=== PATIENT | male | born 1930 | race Caucasian/White ===

== ENCOUNTER 2017-12-23 19:17 | Emergency (ER) | payer MEDICARE ==
[~2017-12-23] VITALS: Ht 167.6 cm; Wt 99.8 kg
[2017-12-23 19:17] VITALS: BP_SYST 154
[~2017-12-23 19:17] MED LIST: ASCO500T20 PO; ASPI81TA2 PO; ATOR20TA64 PO; CALC-226 PO; FURO-149 PO; HYDR-1115 PO; HYT1 GT; LISI30TA36 PO; NPH,100V SUBCUT; POTA-118 PO; SSREG SUBCUT; VITD2000 PO
[2017-12-23 21:00] LABS: BILIRUBIN,URINE NEGATIVE (NEGATIVE); BLOOD, URINE NEGATIVE (NEGATIVE); CLARITY/URINE CLEAR (CLEAR); COLOR,URINE YELLOW (YELLOW); GLUCOSE,URINE 3+ (NEGATIVE); KETONES,URINE NEGATIVE (NEGATIVE); LEUKOCYTE ESTERASE ,URINE NEGATIVE (NEGATIVE); NITRITE, URINE NEGATIVE (NEGATIVE); PH,URINE 6.5 (5.0-8.0); PROTEIN URINE NEGATIVE (NEGATIVE); UROBILINOGEN,URINE 0.2 (0.2-1.0)
[2017-12-23 21:05] LABS: BASOPHILS # (AUTO) 0.1 K/uL (0.0-0.2); BASOPHILS % (AUTO) 0.8 % (0.0-2.0); EOSINOPHILS # (AUTO) 0.2 K/uL (0.0-0.4); EOSINOPHILS % (AUTO) 2.8 % (0.0-4.0); HEMATOCRIT 43.8 % (36-54); HEMOGLOBIN 14.7 g/dL (14.0-18.0); LYMPHOCYTES # (AUTO) 1.2 K/uL (1.0-5.5); LYMPHOCYTES % (AUTO) 17.8 % (20.5-51.5); MEAN CORPUSCULAR HEMOGLOBIN 28 pg (27-31); MEAN CORPUSCULAR HGB CONC 34 % (32-36); MEAN CORPUSCULAR VOLUME 83 fL (79.0-98.0); MONOCYTES # (AUTO) 0.5 K/uL (0.0-1.0); MONOCYTES % (AUTO) 7.2 % (1.7-9.3); NEUTROPHILS # (AUTO) 4.5 K/uL (1.8-7.7); NEUTROPHILS % (AUTO) 71.4 % (40.0-70.0); PLATELET COUNT (AUTO) 152 K/uL (130-430); RED BLOOD CELL COUNT(AUTO) 5.31 MIL/uL (4.2-6.2); WHITE BLOOD COUNT (AUTO) 6.5 K/uL (4.8-10.8)
[2017-12-23 21:09] LABS: BACTERIA,URINE RARE /HPF (None Seen); MUCUS,URINE None Seen /LPF (None Seen); RBC,URINE NONE SEEN /HPF (0-3); WBC,URINE NONE SEEN /HPF (0-3)
[2017-12-23 21:14] LABS: ANION GAP 6 (5-15); CALCIUM 8.9 mg/dL (8.4-11.0); CHLORIDE 103 mmol/L (98-107); CREATININE 0.93 mg/dL (0.55-1.30); GLUCOSE 271 mg/dL (70-99); POTASSIUM 3.9 mmol/L (3.5-5.1); SODIUM SERUM 137 mmol/L (136-145); UREA NITROGEN, BLOOD 10 mg/dL (8-21)
[2017-12-23 21:14] LABS: BARBITURATE, URINE NEGATIVE (NEG <=200); BENZODIAZEPINE, URINE NEGATIVE (NEG <=150); CANNABINOID, URINE NEGATIVE (NEG <=50); COCAINE, URINE NEGATIVE (NEG <=150); METHAMPHETAMINES SCREEN,URINE NEGATIVE (NEG <=500); OPIATE, URINE NEGATIVE (NEG <=100); PHENCYCLIDINE SCREEN,URINE NEGATIVE (NEG <=25); UR TRICYCLIC ANTIDEPRESSANTS NEGATIVE (NEG <=300); URINE AMPHETAMINE NEGATIVE (NEG <=500); URINE METHADONE NEGATIVE (NEG <=200); URINE OXYCODONE SCREEN NEGATIVE (NEG <=100); URINE PROPOXYPHENE SCREEN NEGATIVE (NEG <=300)
[2017-12-23 21:17] LABS: PROTHROMBIN TIME 10.4 SECS (9.5-12.5)
[2017-12-23 21:18] LABS: ALANINE AMINOTRANSFERASE 24 U/L (12-78); ALBUMIN 3.3 g/dL (3.4-4.8); ASPARTATE AMINOTRANSFERASE 14 U/L (10-37); TOTAL BILIRUBIN 0.5 mg/dL (0.0-1.0)
[2017-12-23 21:19] LABS: ALCOHOL, BLOOD < 3 mg/dL (<10)
[2017-12-24] VITALS: BP_SYST 148
== END 2017-12-24 | disposition home or self-care (01) ==
LOC: SED 19:17
DX: R53.1 Weakness (principal); E11.9 Type 2 diabetes mellitus without complications; I10 Essential (primary) hypertension; Z86.79 Personal history of other diseases of the circulatory system; Z79.82 Long term (current) use of aspirin; Z79.4 Long term (current) use of insulin; Z88.1 Allergy status to other antibiotic agents
CPT/HCPCS: 36415; 71045; 80053; 80307; 81000; 83880; 84484; 85025; 85610; 85730; 93005; 99285; G0482

== ENCOUNTER 2018-03-25 13:45 | Emergency (ER) | payer MEDICARE ==
[~2018-03-25] VITALS: Ht 180.3 cm; Wt 95.3 kg
[2018-03-25 13:48] VITALS: BP_SYST 129
[2018-03-25] MEDS ORDERED: GENTAMICIN SULFATE 0.3% OPHT. 5 ML DROPS OP ONE (14:15)
[2018-03-25 14:58] VITALS: BP_SYST 129
== END 2018-03-25 14:58 | disposition home or self-care (01) ==
LOC: SED 13:45
DX: H10.9 Unspecified conjunctivitis (principal); I10 Essential (primary) hypertension; Z86.79 Personal history of other diseases of the circulatory system; Z88.1 Allergy status to other antibiotic agents; Z79.82 Long term (current) use of aspirin; Z79.899 Other long term (current) drug therapy
CPT/HCPCS: 99283

== ENCOUNTER 2018-11-17 16:59 | Emergency (ER) | payer MEDICARE ==
[~2018-11-17] VITALS: Ht 180.3 cm; Wt 95.3 kg
[~2018-11-17 16:59] MED LIST changes: +ASPI-1155 PO; -ASPI81TA2 PO; -CALC-226 PO; +CALC-823 PO; -HYDR-1115 PO; +HYDR-4038 PO; -POTA-118 PO; +POTA10TA15 PO
[2018-11-17 17:42] VITALS: BP_SYST 146
[2018-11-17] MEDS ORDERED: NACL 0.9% 1,000 ML IV ONE ×2 (18:47→22:15)
[2018-11-17] MEDS ORDERED: cefTRIAXone 1 GM in D5W 50 ML IV ONE (19:00)
[2018-11-17] MEDS ORDERED: cefTRIAXone 1 GM VIAL ONE (19:41)
[2018-11-17 19:53] LABS: HEMATOCRIT 42.2 % (36-54); HEMOGLOBIN 14.5 g/dL (14.0-18.0); MEAN CORPUSCULAR HEMOGLOBIN 29 pg (27-31); MEAN CORPUSCULAR HGB CONC 34 % (32-36); MEAN CORPUSCULAR VOLUME 84 fL (79.0-98.0); RED BLOOD CELL COUNT(AUTO) 5.02 MIL/uL (4.2-6.2); WHITE BLOOD COUNT (AUTO) 8.9 K/uL (4.8-10.8)
[2018-11-17 19:54] LABS: BASOPHILS % (AUTO) 0.4 % (0.0-2.0); EOSINOPHILS % (AUTO) 0.5 % (0.0-4.0); LYMPHOCYTES % (AUTO) 11.6 % (20.5-51.5); MONOCYTES % (AUTO) 5.9 % (1.7-9.3); NEUTROPHILS # (AUTO) 7.3 K/uL (1.8-7.7); NEUTROPHILS % (AUTO) 81.6 % (40.0-70.0); PLATELET COUNT (AUTO) 120 K/uL (130-430); RED CELL DISTRIBUTION WIDTH 14.2 % (9.0-15.0)
[2018-11-17 19:55] LABS: MONOCYTES # (AUTO) 0.5 K/uL (0.0-1.0)
[2018-11-17 19:58] LABS: ANION GAP 10 (5-15); CALCIUM 8.5 mg/dL (8.4-11.0); CHLORIDE 101 mmol/L (98-107); CREATININE 0.94 mg/dL (0.55-1.30); GLUCOSE 232 mg/dL (70-99); POTASSIUM 3.8 mmol/L (3.5-5.1); SODIUM SERUM 134 mmol/L (136-145); UREA NITROGEN, BLOOD 16 mg/dL (8-21)
[2018-11-17 20:03] LABS: ALANINE AMINOTRANSFERASE 23 U/L (12-78); ALBUMIN 3.3 g/dL (3.4-4.8); ASPARTATE AMINOTRANSFERASE 19 U/L (10-37); TOTAL BILIRUBIN 0.6 mg/dL (0.0-1.0)
[2018-11-17] MEDS ORDERED: MORPHINE 4 MG/ML INJ. SYRINGE IVP ONE (21:15)
[2018-11-17] MEDS ORDERED: ACETAMINOPHEN 500 MG TABLET PO ONE (22:30)
[2018-11-17] MEDS ORDERED: hydrALAZINE HCL 20 MG/ML VIAL IVP ONE (22:30)
[2018-11-17] MEDS ORDERED: cloNIDine HCL 0.1 MG TABLET PO ONE (22:45)
[2018-11-17 23:04] VITALS: BP_SYST 174
== END 2018-11-17 23:04 | disposition short-term general hospital (02) ==
LOC: SED 16:59
DX: T83.090A Other mechanical complication of cystostomy catheter, initial encounter (principal); E11.9 Type 2 diabetes mellitus without complications; I10 Essential (primary) hypertension; Z86.79 Personal history of other diseases of the circulatory system; Z88.1 Allergy status to other antibiotic agents; Z79.899 Other long term (current) drug therapy; Z79.82 Long term (current) use of aspirin
CPT/HCPCS: 36415; 80053; 83605; 85025; 87040; 87186; 96365; 96375; 99285; J0360; J0696; J2270; J7030

== ENCOUNTER 2019-07-19 21:51 | Emergency (ER) | payer MEDICARE ==
[~2019-07-19] VITALS: Ht 182.9 cm; Wt 108.9 kg
[2019-07-19 22:00] VITALS: BP_SYST 146
--- NOTE | 2019-07-19 22:05 | NUR ---
Pt to bed 8 for evaluation
--- NOTE | 2019-07-19 22:12 | NUR ---
PLACED IN BED 8. HERE FOR LOWER ABDOMINAL,SCROTAL PAIN AND SWELLING.
--- NOTE | 2019-07-19 22:30 | NUR ---
FINGERSTICK BLOOD SUGAR GICZH=075. MADE AWARE.
--- NOTE | 2019-07-19 23:01 | NUR ---
BODY RECALL INSTRUCTOR.AT BEDSIDE TO DO TESTICULAR ULTRASOUND.
--- NOTE | 2019-07-19 23:32 | NUR ---
ULTRASOUND COMPLETED. PT.TOLERATED WELL.
--- NOTE | 2019-07-20 00:19 | NUR ---
ER-MD BACK AT BEDSIDE TO RE-EVALUATE AND DISCUSS PLAN OF CARE WITH PATIENT.
[2019-07-20] MEDS ORDERED: MORPHINE 2 MG/ML INJ. SYRINGE IVP ONE (00:30)
--- NOTE | 2019-07-20 00:48 | NUR ---
GAUGE 20 IV LINE ESTABLISHED TO THE RIGHT WRIST. MORPHINE 2 MG IVP GIVEN FOR PAIN (06/18). WILL GIVE LEVAQUIN IVPB LATER AFTER BLOOD CULTURES WERE DRAWN.
--- NOTE | 2019-07-20 01:16 | NUR ---
BLOOD CULTURES X 2 DRAWN BY LAB.TEXTILE TECHNICAL OFFICER. LEVAQUIN 750 MG IVPB ADMINISTERED.
--- NOTE | 2019-07-20 01:18 | NUR ---
PT. VERBALIZED TOTAL RELIEF OF PAIN.
[2019-07-20 02:27] LABS: MEAN CORPUSCULAR VOLUME 82 fL (79.0-98.0); WHITE BLOOD COUNT (AUTO) 3.4 K/uL (4.8-10.8)
[2019-07-20 02:37] LABS: ALANINE AMINOTRANSFERASE 25 U/L (12-78); ALBUMIN 2.8 g/dL (3.4-4.8); ANION GAP 7 (5-15); ASPARTATE AMINOTRANSFERASE 21 U/L (10-37); CALCIUM 7.7 mg/dL (8.4-11.0); CHLORIDE 103 mmol/L (98-107); CREATININE 0.95 mg/dL (0.55-1.30); GLUCOSE 113 mg/dL (70-99); POTASSIUM 3.1 mmol/L (3.5-5.1); SODIUM SERUM 135 mmol/L (136-145); TOTAL BILIRUBIN 0.3 mg/dL (0.0-1.0); UREA NITROGEN, BLOOD 13 mg/dL (8-21)
[2019-07-20 02:43] LABS: PLATELET COUNT (AUTO) 97 K/uL (130-430); RED CELL DISTRIBUTION WIDTH 14.4 % (9.0-15.0)
[2019-07-20 02:49] LABS: HEMATOCRIT 36.3 % (36-54); HEMOGLOBIN 12.5 g/dL (14.0-18.0); MEAN CORPUSCULAR HEMOGLOBIN 28 pg (27-31); MEAN CORPUSCULAR HGB CONC 35 % (32-36); RED BLOOD CELL COUNT(AUTO) 4.44 MIL/uL (4.2-6.2)
--- NOTE | 2019-07-20 03:09 | NUR ---
IV ANTIBIOTIC INFUSION COMPLETED. CAREGIVER MELCHOR CONTACTED AT AND INFORMED HIM OF PT'S IMPENDING DISCHARGE. PT. REMAINS STABLE AND PAIN FREE.
--- NOTE | 2019-07-20 03:33 | NUR ---
CAREGIVER MELCHOR HERE TO PICK-UP PT. DISCHARGED STABLE AND IMPROVED. PRESCRIPTIONS,VERBAL AND WRITTEN AFTERCARE INSTRUCTIONS GIVEN TO PT. AND CAREGIVER. VERBALIZED UNDERSTANDING.
[2019-07-20 03:59] LABS: ATYPICAL LYMPHOCYTES % 1 % (0-0); BASOPHILS % (MANUAL) 0 % (0-2); EOSINOPHILS % (MANUAL) 2 % (0-7); LYMPHOCYTES % (MANUAL) 23 % (20-46); MONOCYTES % (MANUAL) 12 % (0-11)
[2019-07-20 04:01] VITALS: BP_SYST 143
== END 2019-07-20 04:01 | disposition home or self-care (01) ==
LOC: SED 21:51
DX: N45.1 Epididymitis (principal); N43.3 Hydrocele, unspecified; I10 Essential (primary) hypertension; E11.9 Type 2 diabetes mellitus without complications; Z88.1 Allergy status to other antibiotic agents; Z79.4 Long term (current) use of insulin; Z79.82 Long term (current) use of aspirin; Z79.899 Other long term (current) drug therapy
CPT/HCPCS: 36415; 76870; 80053; 82962; 83605; 85007; 85027; 87040; 96365; 96375; 99284; J1956; J2270

== ENCOUNTER 2019-10-28 18:37 | Emergency (ER) | payer MEDICARE ==
[~2019-10-28] VITALS: Ht 182.9 cm; Wt 111.1 kg
--- NOTE | 2019-10-28 19:25 | NUR ---
PLACED IN BED 4,CHANGED TO A GOWN AND HOOKED TO THE MONITOR. HERE FOR LEFT GROIN PAIN.
[2019-10-28 19:30] VITALS: BP_SYST 151
--- NOTE | 2019-10-28 20:09 | NUR ---
FINGERSTICK BLOOD SUGAR JWRGZ=[id number]. REGINALDO MADE AWARE.
[2019-10-28] MEDS ORDERED: NS 500 ML IV ONE ×2 (20:15→21:45)
[2019-10-28] MEDS ORDERED: MORPHINE 2 MG/ML INJ. SYRINGE IVP ONE (20:15)
--- NOTE | 2019-10-28 20:20 | NUR ---
GAUGE 20 IV LINE ESTABLISHED TO THE LEFT WRIST. PLACED ON 2 LPM O2 VIA NC.
--- NOTE | 2019-10-28 20:23 | NUR ---
NS 500 ML BOLUS AND MORPHINE 2 MG IVP GIVEN ORDERED. LAB.TECH. AT BEDSIDE TO DRAW BLOOD.
[2019-10-28] MEDS ORDERED: IPRATROPIUM/ALBUTEROL SULFATE 3 ML AMPUL.NEB (DUONEB) INH ONE (20:30)
--- NOTE | 2019-10-28 20:34 | NUR ---
ABG DRAWN BY RT.
[2019-10-28 20:49] LABS: BASOPHILS # (AUTO) 0.1 K/uL (0.0-0.2); BASOPHILS % (AUTO) 0.5 % (0.0-2.0); EOSINOPHILS # (AUTO) 0.1 K/uL (0.0-0.4); EOSINOPHILS % (AUTO) 0.8 % (0.0-4.0); HEMATOCRIT 47.4 % (36-54); HEMOGLOBIN 16.2 g/dL (14.0-18.0); LYMPHOCYTES # (AUTO) 1.1 K/uL (1.0-5.5); LYMPHOCYTES % (AUTO) 8.9 % (20.5-51.5); MEAN CORPUSCULAR HEMOGLOBIN 28 pg (27-31); MEAN CORPUSCULAR HGB CONC 34 % (32-36); MEAN CORPUSCULAR VOLUME 82 fL (79.0-98.0); MONOCYTES # (AUTO) 0.5 K/uL (0.0-1.0); MONOCYTES % (AUTO) 3.7 % (1.7-9.3); NEUTROPHILS # (AUTO) 10.7 K/uL (1.8-7.7); NEUTROPHILS % (AUTO) 86.1 % (40.0-70.0); PLATELET COUNT (AUTO) 174 K/uL (130-430); RED BLOOD CELL COUNT(AUTO) 5.79 MIL/uL (4.2-6.2); RED CELL DISTRIBUTION WIDTH 15.2 % (9.0-15.0); WHITE BLOOD COUNT (AUTO) 12.5 K/uL (4.8-10.8)
--- NOTE | 2019-10-28 20:49 | NUR ---
WENT FOR CT SCAN OF ABDOMEN AND PELVIS VIA [facility].
[2019-10-28 21:01] LABS: ANION GAP 14 (5-15); CALCIUM 9.4 mg/dL (8.4-11.0); CHLORIDE 97 mmol/L (98-107); CREATININE 1.18 mg/dL (0.55-1.30); GLUCOSE 339 mg/dL (70-99); POTASSIUM 3.7 mmol/L (3.5-5.1); SODIUM SERUM 134 mmol/L (136-145); UREA NITROGEN, BLOOD 19 mg/dL (8-21)
--- NOTE | 2019-10-28 21:05 | NUR ---
BACK FROM CT SCAN. SUPRAPUBIC CATHETER REPLACED WITH FRENCVH 16 MILLER CATHETER. URINE SPECIMEN COLLECTED AND SENT TO THE LAB. Addendum: 10/28/19 at 2307 by [id number] INITIAL URINE OUTPUT IN THE BAG IS 600 ML.
[2019-10-28 21:07] LABS: ALANINE AMINOTRANSFERASE 21 U/L (12-78); ALBUMIN 4.1 g/dL (3.4-4.8); ASPARTATE AMINOTRANSFERASE 24 U/L (10-37); LIPASE 140 U/L (73-393); TOTAL BILIRUBIN 0.8 mg/dL (0.0-1.0)
--- NOTE | 2019-10-28 21:10 | NUR ---
BREATHING TREATMENT GIVEN BY RT.
[2019-10-28 21:33] LABS: BILIRUBIN,URINE NEGATIVE (NEGATIVE); BLOOD, URINE 2+ (NEGATIVE); COLOR,URINE YELLOW (YELLOW); GLUCOSE,URINE 3+ (NEGATIVE); KETONES,URINE NEGATIVE (NEGATIVE); LEUKOCYTE ESTERASE ,URINE 1+ (NEGATIVE); NITRITE, URINE NEGATIVE (NEGATIVE); PROTEIN URINE 2+ (NEGATIVE); UROBILINOGEN,URINE 0.2 (0.2-1.0)
[2019-10-28 21:37] LABS: CLARITY/URINE CLOUDY (CLEAR)
[2019-10-28] MEDS ORDERED: cefTRIAXone 1 GM IVPB PREMIX 50 ML IV ONE (21:45)
--- NOTE | 2019-10-28 21:51 | NUR ---
ROCEPHIN 1 GM IVPB AND ANOTHER 500 ML BOLUS NORMAL SALINE GIVEN ORDERED. PT.DENIES ANY PAIN OR DISCOMFORT AT THIS TIME. VS REMAIN STABLE.
[2019-10-28 21:52] LABS: BACTERIA,URINE FEW /HPF (None Seen); WBC,URINE >100 /HPF (0-3)
[2019-10-28 21:55] LABS: MUCUS,URINE None Seen /LPF (None Seen); YEAST,URINE Moderate /HPF (None Seen)
--- NOTE | 2019-10-28 23:08 | NUR ---
REPEAT LACTIC ACID DRAWN BY LAB.TECH. PT.REMAINS STABLE AND PAIN FREE.
--- NOTE | 2019-10-29 01:00 | NUR ---
ASLEEP, NOT IN ANY KIND OF DISTRESS. NO PAIN OR DISCOMFORT NOTED. PT. HAS BEEN ACCEPTED BY [facility]. NO TRANSFER INFORMATION GIVEN YET. PT. REMAINS STABLE AND PAIN FREE.
--- NOTE | 2019-10-29 02:34 | NUR ---
PT. WILL BE GOING TO [facility]'. REPORT GIVEN TO TELEMETRY UNIT NURSE TANYA RODRÍGUEZ. AMBULANCE ETA IS 8193. PT.REMAINS STABLE AND PAIN FREE. Addendum: 10/29/19 at 0432 by [email or web address] ACCEPTINGMD IS . PT. GOING TO TELEMETRY UNIT ROOM 605.
--- NOTE | 2019-10-29 03:55 | NUR ---
[facility] HERE TO HYDRO STATION OPERATOR PT. REPORT GIVEN TO APPEALS EXAMINER GISSELLE AC. PT. REMAINS STABLE AND PAIN FREE.
--- NOTE | 2019-10-29 04:00 | NUR ---
SUPRAPUBIC CATHETER EMTIED. TOTAL [id number] ML.
--- NOTE | 2019-10-29 04:16 | NUR ---
LEFT UNIT VIA AMBULANCE [facility].
[2019-10-29 04:30] VITALS: BP_SYST 116
== END 2019-10-29 04:30 | disposition short-term general hospital (02) ==
LOC: SED 18:37
DX: R33.9 Retention of urine, unspecified (principal); N39.0 Urinary tract infection, site not specified; E87.2 Acidosis; E11.9 Type 2 diabetes mellitus without complications; I10 Essential (primary) hypertension; Z86.73 Personal history of transient ischemic attack (TIA), and cerebral infarction without residual deficits; Z79.82 Long term (current) use of aspirin; Z79.899 Other long term (current) drug therapy; Z79.4 Long term (current) use of insulin; Z88.1 Allergy status to other antibiotic agents
CPT/HCPCS: 36415; 36600; 51702; 71045; 74176; 80053; 81000; 82803; 82962; 83605; 83690; 85025; 87040; 87086; 87186; 94640; 96365; 96375; 99285; J0696; J2270; J7040; J7620

== ENCOUNTER 2019-12-14 10:41 | Emergency (ER) | payer MEDICARE ==
[~2019-12-14] VITALS: Ht 180.3 cm; Wt 95.3 kg
[2019-12-14 10:50] VITALS: BP_SYST 126
[2019-12-14] MEDS ORDERED: NACL 0.9% 1,000 ML IV ONE ×2 (11:00→14:00)
[2019-12-14 12:36] LABS: BASOPHILS % (AUTO) 0.4 % (0.0-2.0); EOSINOPHILS # (AUTO) 0.1 K/uL (0.0-0.4); EOSINOPHILS % (AUTO) 1.3 % (0.0-4.0); HEMATOCRIT 37.9 % (36-54); HEMOGLOBIN 12.7 g/dL (14.0-18.0); LYMPHOCYTES # (AUTO) 0.9 K/uL (1.0-5.5); LYMPHOCYTES % (AUTO) 14.1 % (20.5-51.5); MEAN CORPUSCULAR HEMOGLOBIN 28 pg (27-31); MEAN CORPUSCULAR HGB CONC 34 % (32-36); MEAN CORPUSCULAR VOLUME 83 fL (79.0-98.0); MONOCYTES # (AUTO) 0.5 K/uL (0.0-1.0); MONOCYTES % (AUTO) 7.2 % (1.7-9.3); NEUTROPHILS # (AUTO) 5.1 K/uL (1.8-7.7); PLATELET COUNT (AUTO) 137 K/uL (130-430); RED BLOOD CELL COUNT(AUTO) 4.58 MIL/uL (4.2-6.2); WHITE BLOOD COUNT (AUTO) 6.7 K/uL (4.8-10.8)
[2019-12-14 13:30] LABS: ANION GAP 8 (5-15); CALCIUM 8.1 mg/dL (8.4-11.0); CHLORIDE 103 mmol/L (98-107); CREATININE 1.14 mg/dL (0.55-1.30); GLUCOSE 269 mg/dL (70-99); POTASSIUM 4.9 mmol/L (3.5-5.1); SODIUM SERUM 137 mmol/L (136-145); UREA NITROGEN, BLOOD 14 mg/dL (8-21)
[2019-12-14 13:36] LABS: ALANINE AMINOTRANSFERASE 24 U/L (12-78); ALBUMIN 2.8 g/dL (3.4-4.8); ASPARTATE AMINOTRANSFERASE 16 U/L (10-37); TOTAL BILIRUBIN 1.1 mg/dL (0.0-1.0)
[2019-12-14 13:48] LABS: BILIRUBIN,URINE 3+ (NEGATIVE); BLOOD, URINE 3+ (NEGATIVE); CLARITY/URINE CLOUDY (CLEAR); COLOR,URINE BROWN (YELLOW); GLUCOSE,URINE 1+ (NEGATIVE); KETONES,URINE 1+ (NEGATIVE); LEUKOCYTE ESTERASE ,URINE 2+ (NEGATIVE); NITRITE, URINE POSITIVE (NEGATIVE); PROTEIN URINE 3+ (NEGATIVE)
[2019-12-14 13:56] LABS: BACTERIA,URINE FEW /HPF (None Seen); MUCUS,URINE 1+ /LPF (None Seen); RBC,URINE >100 /HPF (0-3); WBC,URINE >100 /HPF (0-3)
[2019-12-14] MEDS ORDERED: cefTRIAXone 1 GM IVPB PREMIX 50 ML IV ONE (14:00)
[2019-12-14] MEDS ORDERED: INSULIN REGULAR, HUMAN 10 UNITS/0.1 ML INJ IVP ONE (14:15)
[2019-12-14 15:58] VITALS: BP_SYST 136
== END 2019-12-14 15:58 | disposition short-term general hospital (02) ==
LOC: SED 10:41
DX: E11.65 Type 2 diabetes mellitus with hyperglycemia (principal); N39.0 Urinary tract infection, site not specified; R53.1 Weakness; E87.2 Acidosis; I10 Essential (primary) hypertension; Z88.1 Allergy status to other antibiotic agents; Z79.4 Long term (current) use of insulin; Z79.82 Long term (current) use of aspirin; Z79.899 Other long term (current) drug therapy
CPT/HCPCS: 36415; 71045; 80053; 81000; 82962; 83605; 84484; 85025; 87040; 87086; 93005; 96361; 96365; 96375; 99285; J0696; J1815; J7030; 87186-TC

== ENCOUNTER 2021-08-28 21:07 | Emergency (ER) | payer MEDICARE, SELFPAY ==
[~2021-08-28] VITALS: Ht 180.3 cm; Wt 86.2 kg
[2021-08-28 21:15] VITALS: BP_SYST 156
[2021-08-28] MEDS ORDERED: NACL 0.9% 1,000 ML IV ONE (22:00)
[2021-08-28] MEDS ORDERED: INSULIN REGULAR, HUMAN 10 UNITS/0.1 ML INJ IVP ONE (22:00)
[2021-08-28 22:18] LABS: BASOPHILS % (AUTO) 0.6 % (0.0-2.0); EOSINOPHILS # (AUTO) 0.2 K/uL (0.0-0.4); EOSINOPHILS % (AUTO) 2.7 % (0.0-4.0); HEMOGLOBIN 13.9 g/dL (14.0-18.0); LYMPHOCYTES # (AUTO) 1.8 K/uL (1.0-5.5); LYMPHOCYTES % (AUTO) 24.4 % (20.5-51.5); MEAN CORPUSCULAR HEMOGLOBIN 28 pg (27-31); MEAN CORPUSCULAR HGB CONC 35 % (32-36); MEAN CORPUSCULAR VOLUME 81 fL (79.0-98.0); MONOCYTES # (AUTO) 0.5 K/uL (0.0-1.0); MONOCYTES % (AUTO) 6.7 % (1.7-9.3); NEUTROPHILS # (AUTO) 4.9 K/uL (1.8-7.7); NEUTROPHILS % (AUTO) 65.6 % (40.0-70.0); PLATELET COUNT (AUTO) 149 K/uL (130-430); RED BLOOD CELL COUNT(AUTO) 4.92 MIL/uL (4.2-6.2); RED CELL DISTRIBUTION WIDTH 14.5 % (9.0-15.0); WHITE BLOOD COUNT (AUTO) 7.5 K/uL (4.8-10.8)
[2021-08-28 23:00] LABS: ANION GAP 7 (5-15); CHLORIDE 94 mmol/L (98-107); SODIUM SERUM 133 mmol/L (136-145); UREA NITROGEN, BLOOD 16 mg/dL (8-21)
[2021-08-28 23:08] LABS: ALANINE AMINOTRANSFERASE 20 U/L (12-78); ALBUMIN 3.3 g/dL (3.4-4.8); ASPARTATE AMINOTRANSFERASE 16 U/L (10-37); TOTAL BILIRUBIN 0.6 mg/dL (0.0-1.0)
[2021-08-28 23:41] LABS: GLUCOSE 438 mg/dL (70-99); POTASSIUM 2.6 mmol/L (3.5-5.1)
[2021-08-29] MEDS ORDERED: KCL 20 mEq in 100 mL (PREMIX) 100 ML IV ONE
[2021-08-29] MEDS ORDERED: POTASSIUM CHLORIDE 20 MEQ TAB.PRT.SR PO ONE
[2021-08-29 09:00] VITALS: BP_SYST 155
== END 2021-08-29 09:00 | disposition short-term general hospital (02) ==
LOC: SED 21:07
DX: U07.1 COVID-19 (principal); S06.5X0A Traumatic subdural hemorrhage without loss of consciousness, initial encounter; M48.54XA Collapsed vertebra, not elsewhere classified, thoracic region, initial encounter for fracture; E87.6 Hypokalemia; I48.91 Unspecified atrial fibrillation; E11.65 Type 2 diabetes mellitus with hyperglycemia; I10 Essential (primary) hypertension; Z79.899 Other long term (current) drug therapy; Z88.1 Allergy status to other antibiotic agents; W18.39XA Other fall on same level, initial encounter; Y93.89 Activity, other specified; Y92.89 Other specified places as the place of occurrence of the external cause; Y99.8 Other external cause status
CPT/HCPCS: 36415; 70450; 71045; 71100; 71260; 72125; 72128; 72131; 74177; 76376 ×2; 80053; 82550; 82962; 83735; 84484; 85025; 87426; 93005 ×2; 96361; 96365; 96375; 99285; J3480; J7030; Q9967